=== PATIENT | male | born 2000 | race Caucasian/White ===

== ENCOUNTER 2021-08-10 17:27 | Emergency (ER) | payer BC ==
[~2021-08-10] VITALS: Ht 170.2 cm; Wt 70.5 kg
[2021-08-10 17:43] VITALS: TEMP 98.1
[2021-08-10 17:59] LABS: COLLECTION METHOD CLEAN CATCH
[2021-08-10 18:07] LABS: MUCOUS Present (NOT PRESENT); PH 7 (5-8); SQUAMOUS EPITHELIAL None Seen /hpf (0-10); URINE APPEARANCE Cloudy (CLEAR/HAZY); URINE BACTERIA Rare (NONE SEEN); URINE BILIRUBIN Negative (NEGATIVE); URINE BLOOD 1+ (NEGATIVE); URINE COLOR Yellow (YELLOW); URINE GLUCOSE Negative (NEGATIVE); URINE KETONE Negative (NEGATIVE); URINE LEUKOCYTE ESTERASE 2+ (NEGATIVE); URINE NITRATE Negative (NEGATIVE); URINE PROTEIN(semi-quant) Negative (NEGATIVE); URINE UROBILINOGEN Negative (NEGATIVE)
[2021-08-10] MEDS ORDERED: OMNICEF 300MG300 MG PO (19:02)
[2021-08-10 19:14] VITALS: BP 128/78; PULSE 76
== END 2021-08-10 19:14 | disposition home or self-care (01) ==
LOC: COL.ER 17:27
PROVIDERS: Nurse Practitioner Primary Care
DX: N45.1 Epididymitis (principal); N39.0 Urinary tract infection, site not specified